=== PATIENT | female | born 1935 | race African-American/Black ===

== ENCOUNTER → 2016-04-11 | Outpatient (CLI) | payer OTHER ==
--- NOTE | 2016-04-11 12:20 | RAD ---
DATE: 04/11/2016 EXAM: DIGITAL SCREEN BILAT W/CAD HISTORY: Screening COMPARISON: One year earlier This study was interpreted with the benefit of Computerized Aided Detection (CAD). FINDINGS: The breast parenchyma shows scattered fibroglandular densities. Breast parenchyma level B. There has been little change compared to the previous exam IMPRESSION: Benign finding BI-RADS CATEGORY: 2 BENIGN FINDING(S) RECOMMENDED FOLLOW-UP: 12M 12 MONTH FOLLOW-UP PQRS compliance statement: Patient information was entered into a reminder system with a target due date 04/11/2017 for the next mammogram. Mammography is a sensitive method for finding small breast cancers, but it does not detect them all and is not a substitute for careful clinical examination. A negative mammogram does not negate a clinically suspicious finding and should not result in delay in biopsying a clinically suspicious abnormality. "Our facility is accredited by the [employer] Mammography [employer]."
== END | disposition home or self-care (01) ==
LOC: MAMMO 14:07
PROVIDERS: ATTEND Family Medicine
DX: Z12.31 Encounter for screening mammogram for malignant neoplasm of breast (principal)
CPT/HCPCS: 77052; G0202; 77067

== ENCOUNTER → 2017-05-29 | Outpatient (CLI) | payer MEDICARE | END | disposition home or self-care (01) | LOC: MAMMO 10:26 | DX: Z12.31 Encounter for screening mammogram for malignant neoplasm of breast (principal) | CPT/HCPCS: 77067 ==

== ENCOUNTER → 2017-12-21 | Outpatient (CLI) | payer MEDICARE ==
--- NOTE | 2017-12-22 07:51 | KCIC ---
AP view of the abdomen Clinical indications: Right lower quadrant pain for one week. Constipation. Decreased appetite. Pain is worse at night. FINDINGS: There is mild fecal retention throughout the colon and rectosigmoid region. No obstructive bowel pattern is seen. Vascular calcifications are seen within the anatomic pelvis. A right hip arthroplasty is evident. IMPRESSION: No acute radiographic abnormality. Electronically signed by: Kobi Mccollum MD (12/22/2017 7:48 AM) [facility]
== END | disposition home or self-care (01) ==
LOC: KCIC 15:43
PROVIDERS: ATTEND Nurse Practitioner Family
DX: K59.09 Other constipation (principal); N73.8 Other specified female pelvic inflammatory diseases
CPT/HCPCS: 74018

== ENCOUNTER → 2017-12-31 | Outpatient (CLI) | payer MEDICARE ==
--- NOTE | 2017-12-31 17:23 | KCIC ---
CT ABDOMEN PELVIS WO CONTRAST Indication: Right upper quadrant and right lower quadrant pain. Decreased appetite. Decreased renal function. Pain for about 3 weeks. Exposure: One or more of the following individualized dose reduction techniques were utilized for this examination: 1. Automated exposure control 2. Adjustment of the mA and/or kV according to patient size 3. Use of iterative reconstruction technique. Comparison: None are available. Contrast: No intravenous contrast given. Oral contrast was given. Evaluation of solid viscera, bowel and vasculature is compromised by the noncontrast technique. Lower thorax: Mild linear markings in both lung bases, most likely atelectasis or fibrosis. Small pericardial effusion. Liver: Innumerable hypodense lesions. Largest is in the inferior right lobe and measures 10 cm long axis. Random measurement of attenuation coefficients of some of these lesions are compatible with fluid density and cyst etiology. Calcification identified between some of the lesions at the central aspect of the liver. Spleen: Unremarkable Pancreas: Unremarkable Adrenals: No evidence of mass. Kidneys: No obvious mass. Urinary tracts: No urolithiasis or hydronephrosis. Gallbladder: Poorly seen, may be contracted. Aorta: Mildly calcified. Lymph nodes: No significant enlargement GI tract: Small hiatal hernia. Thickening of the proximal stomach may be due to lack of distention. Wall thickening of the duodenum, may be due to lack of distention and lack of oral contrast within this segment. No evidence of bowel obstruction. There is mild wall thickening of the hepatic flexure of the colon, could be due to the lack of distention. The appendix is not clearly seen Reproductive organs:No evidence of mass. Urinary bladder: Poorly evaluated due to artifact from right hip replacement. Peritoneum: No free fluid is identified. Mild stranding in the right paracolic gutter fat and around the inferior right liver and hepatic flexure of the colon. Abdominal wall: Small fat-containing anterior abdominal wall umbilical hernia. Spine: Degenerative spondylosis with minimal spondylolisthesis and stenosis. Bones: Right hip replacement. Left hip primary osteoarthritis. IMPRESSION: 1. Stranding within the fat around the inferior liver and hepatic flexure of the colon. This could be secondary to mass effect from large lower right lobe hepatic lesion. Inflammatory etiology is possible. There is question of mild wall thickening of the hepatic flexure of the colon, and mild colitis is possible. 2. Innumerable hepatic lesions, some of which demonstrate fluid density and these likely represent cysts, but some are too small to characterize. Some central coarse calcifications between some of these cysts appears chronic. Unless these have been previously worked up, ultrasound could be of benefit to confirm the lack of any noncystic lesions. Electronically signed by: Epi Rutherford MD (12/31/2017 5:19 PM) [facility]
== END | disposition home or self-care (01) ==
LOC: KCIC CT 14:57
PROVIDERS: ATTEND Nurse Practitioner Family
DX: N28.9 Disorder of kidney and ureter, unspecified (principal); K76.89 Other specified diseases of liver; M43.16 Spondylolisthesis, lumbar region; K44.9 Diaphragmatic hernia without obstruction or gangrene; M47.896 Other spondylosis, lumbar region; I31.3 Pericardial effusion (noninflammatory); I10 Essential (primary) hypertension
CPT/HCPCS: 74176

== ENCOUNTER → 2018-01-15 | Outpatient (CLI) | payer MEDICARE ==
--- NOTE | 2018-01-15 15:34 | RAD ---
ABDOMEN COMPLETE History: Liver mass Comparison: Noncontrast CT exam December 31, 2017 Findings: Multiple sonographic images of the abdomen are submitted. Right lobe of the liver measured 18.3 cm longitudinal. There are multiple scattered hypoechoic lesions of the liver bilaterally, some foci associated with internal echoes. Largest focus of the right lobe measures about 11 x 9.6 x 10.3 cm. Gallbladder is present without intraluminal abnormality, wall thickening, pericholecystic fluid. Right kidney measured 11.9 x 4.5 x 4.6 cm. Left kidney measured 10.4 x 4.3 x 4.8 cm. There is no hydronephrosis of either kidney. There is no significant abnormality of the visualized pancreas. Spleen measured 9.3 cm. Abdominal aortic caliber is within normal limits up to 2.4 cm. There is segmental visualization of the inferior vena cava. Impression: 1. There are multiple septated cysts of the liver bilaterally, largest of the right lobe up to about 11 cm, some of which have complex features. Electronically signed by: Ziyad Gee MD (01/15/2018 3:31 PM) [facility]
== END | disposition home or self-care (01) ==
LOC: US 09:12
PROVIDERS: ATTEND Nurse Practitioner Family
DX: R16.0 Hepatomegaly, not elsewhere classified (principal); K76.89 Other specified diseases of liver
CPT/HCPCS: 76700

== ENCOUNTER → 2018-04-08 | Outpatient (CLI) | payer MEDICARE ==
[2018-04-08 10:35] LABS: BASO % 0 % (0-3); EOS # 0.1 x10^3/uL (0.0-0.7); EOS % 2 % (0-3); HEMATOCRIT 33.7 % (36.0-47.0); HEMOGLOBIN 11.3 g/dL (12.0-15.5); LYMPH # 1.2 x10^3/uL (1.0-4.8); LYMPH % 24 % (24-48); MEAN CORPUSCULAR HEMOGLOBIN 30 pg (25-35); MEAN CORPUSCULAR HGB CONC 33 g/dL (31-37); MEAN CORPUSCULAR VOLUME 91 fL (79-100); MONO # 0.7 x10^3/uL (0.0-1.1); MONO % 14 % (0-9); NEUT # 3.1 x10^3uL (1.8-7.7); NEUT % 60 % (31-73); PLATELET COUNT 262 x10^3/uL (140-400); RED CELL DISTRIBUTION WIDTH 14.4 % (11.5-14.5); WHITE BLOOD COUNT 5.1 x10^3/uL (4.0-11.0)
[2018-04-08 10:39] LABS: ALBUMIN 3.4 g/dL (3.4-5.0); ALBUMIN/GLOBULIN RATIO 0.7 (1.0-1.7); CALCIUM 9.3 mg/dL (8.5-10.1); CREATININE 1.5 mg/dL (0.6-1.0); GFR 40.2; POTASSIUM 3.9 mmol/L (3.5-5.1); TOTAL BILIRUBIN 0.3 mg/dL (0.2-1.0); TOTAL PROTEIN 8.5 g/dL (6.4-8.2)
== END | disposition home or self-care (01) ==
LOC: LAB 09:53
PROVIDERS: ATTEND Family Medicine
DX: N19 Unspecified kidney failure (principal); D64.9 Anemia, unspecified
CPT/HCPCS: 36415; 80053; 82043; 85025

== ENCOUNTER → 2018-05-25 | Outpatient (CLI) | payer MEDICARE ==
[~2018-05-25] MED LIST: ACET325T9 PO; ASPI-630 PO; BYSTOLIC20 MG PO; CA C1TAB38 PO; CYAN10005 PO; MULT-697 PO; TRIA1CAP3 PO
[2018-05-25 15:35] LABS: HEMATOCRIT 31.5 % (36.0-47.0); HEMOGLOBIN 10.4 g/dL (12.0-15.5)
[2018-05-25 16:01] LABS: ALBUMIN 3.3 g/dL (3.4-5.0); CREATININE 1.6 mg/dL (0.6-1.0); GFR 37.3; MAGNESIUM 2.1 mg/dL (1.8-2.4); POTASSIUM 4.7 mmol/L (3.5-5.1)
[2018-05-26 02:15] LABS: CREAT RD UR 50.7 mg/dL (Not Estab.); MICRO CREAT RATIO 7.3 mg/g creat (0.0-30.0); MICROALB RD UR 3.7 ug/mL (Not Estab.); UR PROTEIN RD 5.7 mg/dL (Not Estab.)
[2018-05-27 12:44] LABS: KAPPA LAMBDA RATIO 1.21 (0.26-1.65)
[2018-05-27 16:15] LABS: IMMUNOGLOBULIN A 362 mg/dL (64-422); IMMUNOGLOBULIN G 1873 mg/dL (700-1600); IMMUNOGLOBULIN M 134 mg/dL (26-217)
[2018-05-28 15:29] LABS: ALBUM 3.4 g/dL (2.9-4.4); ALPHA 1 0.3 g/dL (0.0-0.4); ALPHA 2 0.8 g/dL (0.4-1.0); GAMMA 1.9 g/dL (0.4-1.8); PROTEIN TOTAL 7.4 g/dL (6.0-8.5); SPEP AG RATIO 0.9 (0.7-1.7)
== END | disposition home or self-care (01) ==
LOC: LAB 15:04
PROVIDERS: ATTEND Internal Medicine Nephrology
DX: I12.9 Hypertensive chronic kidney disease with stage 1 through stage 4 chronic kidney disease, or unspecified chronic kidney disease (principal); N18.3 Chronic kidney disease, stage 3 (moderate); D63.1 Anemia in chronic kidney disease; N17.9 Acute kidney failure, unspecified; K76.89 Other specified diseases of liver; Z68.28 Body mass index [BMI] 28.0-28.9, adult
CPT/HCPCS: 36415; 80069; 82043; 82570; 83520; 83735; 84156; 84165; 85014; 85018; 86334

== ENCOUNTER → 2018-05-31 | Outpatient (CLI) | payer MEDICARE ==
--- NOTE | 2018-05-31 16:52 | RAD ---
DATE: May 31, 2018 EXAM: MAMMO IGNACIA SCREENING BILATERAL HISTORY: Screening study. COMPARISON: 2017 and 2018 2-D digital mammographic views of both breasts were performed in the CC and MLO projections. 3-D digital tomosynthesis images of both breasts were performed in the CC and MLO projections and reviewed on a computer workstation. This study was interpreted with the benefit of Computerized Aided Detection (CAD). FINDINGS: Breast Density: FATTY The breast parenchyma is primarily fatty replaced. Breast parenchyma level density A.. There are no dominant suspicious masses, suspicious microcalcifications or evidence of architectural distortion. IMPRESSION: No mammographic indicators for malignancy. BI-RADS CATEGORY: 1 NEGATIVE RECOMMENDED FOLLOW-UP: 12M 12 MONTH FOLLOW-UP PQRS compliance statement: Patient information was entered into a reminder system with a target due date June 01, 2019 for the next mammogram. Mammography is a sensitive method for finding small breast cancers, but it does not detect them all and is not a substitute for careful clinical examination. A negative mammogram does not negate a clinically suspicious finding and should not result in delay in biopsying a clinically suspicious abnormality. "Our facility is accredited by the [employer]ammography [employer]." The patient's breast density may affect the ability of mammography to detect breast cancer. There are 4 categories of breast density, A, B, C and D. Breast density A means that most of the breast tissue is replaced with adipose tissue and therefore is not dense. Breast density B means that the breast tissue is mildly dense and scattered. Breast density C means that the breast tissue is heterogeneously dense. Breast density D means that the breast tissue is very dense. Breast densities especially C and D may decrease the sensitivity of mammography to detect breast cancer. Therefore, the patient may benefit from 3-D breast mammography (3D breast tomography) as a part of their screening mammogram. Insurance may or may not pay for this additional imaging. The patient's breast density based on today's mammogram is category A.
== END | disposition home or self-care (01) ==
LOC: MAMMO 10:34
PROVIDERS: ATTEND Family Medicine
DX: Z12.31 Encounter for screening mammogram for malignant neoplasm of breast (principal)
CPT/HCPCS: 77063; 77067

== ENCOUNTER 2018-08-20 08:22 | Outpatient (CLI) | payer MEDICARE ==
[2018-08-20] VITALS (8 sets, daily range): BP systolic 120–167; BP diastolic 53–87
[~2018-08-20] VITALS: Ht 157.5 cm; Wt 74.8 kg
[~2018-08-20 08:22] MED LIST changes: -ACET325T9 PO; -ASPI-630 PO; -BYSTOLIC20 MG PO; -CA C1TAB38 PO; -CYAN10005 PO; +HEPARIN for ARTERIAL LINE 0 ML ONE; +IODIXANOL 320 MG/ML 100 ML VIAL. ONE; +IODIXANOL 320 MG/ML 50ML VIAL. ONE; +IOHEXOL 240 MG/ML 50ML VIAL. ONE; +LIDOCAINE WITH 8.4% SOD BICARB 3 ML DISP.SYRIN. ONE; -MULT-697 PO; -TRIA1CAP3 PO
[2018-08-20] MEDS ORDERED: CYAN10005 PO (08:39)
[2018-08-20] MEDS ORDERED: MULT-697 PO (08:39)
[2018-08-20] MEDS ORDERED: TRIA1CAP3 PO (08:39)
[2018-08-20] MEDS ORDERED: BYSTOLIC20 MG PO (08:39)
[2018-08-20] MEDS ORDERED: ACET325T9 PO (08:39)
[2018-08-20] MEDS ORDERED: ASPI-630 PO (08:39)
[2018-08-20] MEDS ORDERED: CA C1TAB38 PO (08:39)
[2018-08-20] MEDS ORDERED: LIDOCAINE WITH 8.4% SOD BICARB 3 ML DISP.SYRIN. ONE (09:19)
[2018-08-20 09:28] LABS: BASO % 1 % (0-3); EOS # 0.1 x10^3/uL (0.0-0.7); EOS % 2 % (0-3); HEMATOCRIT 29.7 % (36.0-47.0); HEMOGLOBIN 9.7 g/dL (12.0-15.5); LYMPH # 0.8 x10^3/uL (1.0-4.8); LYMPH % 18 % (24-48); MEAN CORPUSCULAR HEMOGLOBIN 29 pg (25-35); MEAN CORPUSCULAR HGB CONC 33 g/dL (31-37); MEAN CORPUSCULAR VOLUME 88 fL (79-100); MONO # 0.6 x10^3/uL (0.0-1.1); MONO % 13 % (0-9); NEUT # 2.8 x10^3uL (1.8-7.7); NEUT % 66 % (31-73); PLATELET COUNT 325 x10^3/uL (140-400); RED BLOOD COUNT 3.37 x10^6/uL (3.50-5.40); RED CELL DISTRIBUTION WIDTH 13.3 % (11.5-14.5); WHITE BLOOD COUNT 4.3 x10^3/uL (4.0-11.0)
[2018-08-20] MEDS ORDERED: LIDOCAINE WITH 8.4% SOD BICARB 3 ML DISP.SYRIN. IJ ONE (09:30)
[2018-08-20 09:43] LABS: PROTHROMBIN TIME PATIENT 14.9 SEC (11.7-14.0)
--- NOTE | 2018-08-20 11:07 | NUR ---
Discharge Note: SARA RIOJAS Discharge instructions and discharge home medications reviewed with Patient and a copy given. All questions have been answered and understanding verbalized. The following instructions and handouts were given: Bone Marrown Biopsy and sign/symptoms of infection. Discontinued lines and drains: NO IV for this visit. Patient discharged to home alone with no family. Patient did NOT have sedation.
--- NOTE | 2018-08-20 15:07 | RAD ---
CT-guided bone marrow biopsy. 08/20/2018 3:03 PM Indication: MONOCLONAL GAMMOPATHY Discussion: The risks and benefits of the procedure, including but not limited to, bleeding and infection were discussed patient. Informed consent was obtained. The patient was brought to the CT scanner and placed in the prone position. A timeout procedure was performed. Account Review Specialist CT imaging of the pelvis demonstrated left ilium amenable to bone marrow biopsy. The overlying soft tissues were prepped and draped using maximum sterile barrier technique. 1% lidocaine without epinephrine was administered for local anesthesia. Under intermittent CT guidance, an OncControl needle was advanced into the bone marrow of the left iliac crest. 2 Aspirates and 1 core biopsy samples were obtained. Samples were delivered to pathology was present at the time of procedure. The needle was removed and manual pressure held to achieve hemostasis. No immediate complications were identified. Anesthesia: Local only Impression: Successful CT-guided bone marrow biopsy of the left iliac crest . PQRS Compliance Statement: One or more of the following individualized dose reduction techniques were utilized for this examination: 1. Automated exposure control 2. Adjustment of the mA and/or kV according to patient size 3. Use of iterative reconstruction technique
--- NOTE | 2018-08-25 10:09 | PATHOLOGY ---
[facility] Accession Number: [id number] . 01 Material submitted: . PART A: bone - BONE MARROW BX PART B: bone - BM CLOT PART C: bone - BM ASP SMEARS PART D: bone - PBS PART E: bone - BONE MARROW FLOW . 01 Clinical history: . 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 . 02 Diagnosis: Bone marrow aspirate, biopsy, cell clot and peripheral blood: - Peripheral blood with moderate normocytic anemia. - Hypercellular bone marrow with trilineage hematopoiesis, erythroid hyperplasia, mild dyspoiesis and focal involvement by plasma cell dyscrasia. (See comment). . (CLW:mm; 08/24/2018) [facility]/08/24/2018 . 02 Comment: Overall, the bone marrow is hypercellular for the patient's age with trilineage hematopoiesis, erythroid hyperplasia, mild dyspoiesis and focal involvement by plasma cell dyscrasia. Flow cytometry identifies 0.9% lambda restricted plasma cells. By immunohistochemical staining, there are 30% plasma cells; however, a predominate number appear polyclonal. Therefore, the estimated percentage of lambda-restricted plasma cells is estimated at less than 10%. Correlation with clinical history, additional laboratory data and radiographic findings is required to determine the extent of the disease process. The dyspoiesis is mild and does not meet the morphologic criteria for myelodysplasia. Correlation with clinical history, additional laboratory data and cytogenetics is recommended. . (CLW:mm; 08/24/2018) . 02 Electronically signed: . Sabiha Barragan MD, Pathologist NPI- [id number] . 01 Gross description: . A. The specimen is received in formalin, labeled "Susan Khan bone marrow biopsy". Received is a single needle core of light saez bone measuring 1.1 cm in length by 0.3 cm in diameter. The specimen is submitted entirely in cassette A1, following light decalcification. . B. The specimen is received in formalin, labeled "Susan Khan, BM clot aspirate". Received is blood coagulum measuring 3.7 x 1.9 x 0.5 cm in aggregate dimensions. The specimen is filtered and entirely submitted in cassette B1 and B2. (CAA; 08/20/2018) QAC/QAC . 02 Microscopic: . CBC Data (08/20/18): WBC 4,300/uL, RBC 3.37, hemoglobin 9.7 g/dL, hematocrit 29.7%, MCV 88 fL, MCH 29 pg, MCHC 33 g/dL, RDW 13.3%, and platelet count 326,000/uL. White blood cell differential: segs 66%, lymphs 18%, monos 13%, eos 2%, and basos 1%. . Peripheral Blood Smear: Cytomorphological examination of the Youssef's stained peripheral blood smear confirms the provided data. Red blood cells show moderate normocytic anemia with no significant anisopoikilocytosis. No schistocytes or microspherocytes are seen. White blood cells are predominantly segmented neutrophils and are without significant dyspoiesis or significant left shift. Lymphocytes are predominantly small, round, and mature appearing with condensed chromatin and scant cytoplasm with admixed large granular lymphocytes. A rare lymphocyte has plasmacytoid morphology; however, no plasma cells are seen on scanning. Monocytes are mature. Platelets are adequate in number and mainly normal in morphology with rare larger platelets noted. . Aspirate Smears: Cytomorphological examination of the Youssef's stained aspirate smears shows spicules present. The overall cellularity is approximately 40%. The myeloid to erythroid ratio is 1:1. Full myeloid maturation is identified and is without significant dyspoiesis. Erythroid maturation is mildly dyserythropoietic with irregular nuclear contours and left-shifted maturation. In a 500 cell differential, there are 2% blasts (no Jean-Pierre rods are seen), 45% more differentiated myeloids, 34% erythroid precursors, 9% lymphocytes and 10% plasma cells. Megakaryocytes are proportional in number and both normal and abnormal in morphology with variable sizes and nuclear abnormalities. No lymphoid aggregates or markedly atypical lymphoid cells are seen. Plasma cells are without marked atypia. Iron stain of the aspirate smear shows trace-1/4+ iron positivity with rare spicules present. No ringed sideroblasts are identified. . Core Biopsy and Cell Clot: The decalcified bone marrow core biopsy is small, but adequate. The bone marrow is mildly hypercellular with an overall cellularity of approximately 40 to 50%. The myeloid to erythroid ratio is 1:1. Myeloid maturation is without significant dyspoiesis. Erythroid maturation is mildly dyserythropoietic. Megakaryocytes are normal in number and both normal and abnormal in morphology. No lymphoid aggregates or markedly atypical lymphoid cells are seen. Bony trabeculae and blood vessels are unremarkable. The cell clot has spicules present that are similar in cellularity and differential morphology as previously described. . Properly-controlled special stains are performed. . Block A1 Iron: 1/4+ iron positivity Reticulin: No significant reticulin fibrosis . Iron (block B1 and B2) - 1/4+ iron positivity with spicules present. . To further quantify and characterize the plasma cell population and to identify cells in a tissue architectural context, properly controlled immunohistochemical stains are performed. . Block A1 CD138: Stains approximately 30% plasma cells [place] and lambda in situ hybridization: Plasma cells are predominantly lambda with admixed kappa cells present . Block B2 CD138: Stains approximately 40% plasma cells [place] and lambda in situ hybridization: Plasma cells are lambda predominate with numerous kappa cells also present . Flow Cytometry: Flow cytometric immunophenotypic analysis was performed at [facility]. The diagnosis is "monoclonal plasma cells detected." There are 13% lymphocytes. Of the lymphocytes, there are 59% T-cells with a CD4/CD8 ratio of 9.3 and no aberrant T-cell antigen expression and 7% polyclonal B-cells (kappa lambda ratio of 1.1). There are 0.5% CD34 positive cells (blasts) and 0.1% precursor B-cells. There are 0.9% plasma cells that are lambda monoclonal and express CD38, CD138 with partial CD19 (mostly negative), partial CD56 (mostly negative) and possible partial CD117. They are negative for CD20. Please see separate flow cytometry report from [facility] ([id number]). . Cytogenetics Analysis: Cytogenetic chromosomal analysis is pending at [facility] ([id number]). . (CLW:francine; 08/24/2018) . 02 Pathologist provided ICD-10: D75.9, D64.9 . 02 CPT . 262451, 478055, 985805, 612940, 314218, 410684, [id number], T81341, [id number], 209574, 855423, 968977, [id number] Specimen Comment: A courtesy copy of this report has been sent to Specimen Comment: [phone], , . Specimen Comment: Report sent to ,DR ORTEGA / DR ANTIONE ANNA Performed at: 01 [facility] [address] [id number] MD Deon Joseph MD Phone: [phone] Performed at: 02 [facility] [address] [id number] MD Toño Henderson MD Phone: [phone]
== END 2018-08-20 11:05 | disposition home or self-care (01) ==
LOC: INTRAD 08:22
PROVIDERS: ATTEND Internal Medicine Hematology & Oncology
DX: D47.2 Monoclonal gammopathy (principal); Z88.0 Allergy status to penicillin
CPT/HCPCS: 36415; 38222; 77012; 85025; 85610; 88184; 88185; 88237; 88305; 88311; 88313; 88342; 88364; 88365

== ENCOUNTER → 2018-09-09 | Outpatient (CLI) | payer MEDICARE ==
[2018-08-20 10:52] VITALS: BP 120/54
[~2018-09-09] MED LIST changes: +ACET325T9 PO; +ASPI-630 PO; +BYSTOLIC20 MG PO; +CA C1TAB38 PO; +CYAN10005 PO; -HEPARIN for ARTERIAL LINE 0 ML ONE; -IODIXANOL 320 MG/ML 100 ML VIAL. ONE; -IODIXANOL 320 MG/ML 50ML VIAL. ONE; -IOHEXOL 240 MG/ML 50ML VIAL. ONE; -LIDOCAINE WITH 8.4% SOD BICARB 3 ML DISP.SYRIN. ONE; +MULT-697 PO; +TRIA1CAP3 PO
[2018-09-09 13:02] LABS: HEMATOCRIT 33.3 % (36.0-47.0); HEMOGLOBIN 11.2 g/dL (12.0-15.5)
[2018-09-09 13:19] LABS: ALBUMIN 3.4 g/dL (3.4-5.0); CALCIUM 9.7 mg/dL (8.5-10.1); GFR 28.9; PHOSPHORUS 3.5 mg/dL (2.6-4.7); POTASSIUM 4.3 mmol/L (3.5-5.1)
[2018-09-10 00:11] LABS: CREATININE PTH 1.79 mg/dL (0.57-1.00); PHOSPHORUS PTH 3.5 mg/dL (2.5-4.5); PTH INTACT 28 pg/mL (15-65)
== END | disposition home or self-care (01) ==
LOC: LAB 12:02
PROVIDERS: ATTEND Internal Medicine Nephrology
DX: N17.9 Acute kidney failure, unspecified (principal); I12.9 Hypertensive chronic kidney disease with stage 1 through stage 4 chronic kidney disease, or unspecified chronic kidney disease; N18.3 Chronic kidney disease, stage 3 (moderate); K76.89 Other specified diseases of liver; D64.9 Anemia, unspecified; Z68.28 Body mass index [BMI] 28.0-28.9, adult
CPT/HCPCS: 36415; 80069; 82306; 83970; 85014; 85018

== ENCOUNTER → 2018-10-12 | Outpatient (CLI) | payer MEDICARE ==
[2018-08-20 10:52] VITALS: BP 120/54
[2018-10-12 14:24] LABS: HEMATOCRIT 30.9 % (36.0-47.0); HEMOGLOBIN 10.5 g/dL (12.0-15.5)
[2018-10-12 14:40] LABS: ALBUMIN 3.3 g/dL (3.4-5.0); CALCIUM 9.5 mg/dL (8.5-10.1); CREATININE 1.9 mg/dL (0.6-1.0); CREATININE,RANDOM URINE 51.8 mg/dL (Not Establ.); GFR 30.6; PHOSPHORUS 3.6 mg/dL (2.6-4.7)
[2018-10-13 01:13] LABS: CREAT RD UR 51.9 mg/dL (Not Estab.); MICRO CREAT RATIO 20.8 mg/g creat (0.0-30.0); MICROALB RD UR 10.8 ug/mL (Not Estab.)
[2018-10-13 08:15] LABS: CALCIUM PTH 9.9 mg/dL (8.7-10.3); CREATININE PTH 1.76 mg/dL (0.57-1.00); PHOSPHORUS PTH 3.6 mg/dL (2.5-4.5); PTH INTACT 19 pg/mL (15-65)
== END | disposition home or self-care (01) ==
LOC: LAB 13:42
PROVIDERS: ATTEND Internal Medicine Nephrology
DX: N18.3 Chronic kidney disease, stage 3 (moderate) (principal); Z68.28 Body mass index [BMI] 28.0-28.9, adult
CPT/HCPCS: 36415; 80069; 82043; 82306; 82570; 83970; 84156; 85014; 85018

== ENCOUNTER → 2019-02-07 | Outpatient (CLI) | payer MEDICARE ==
[2018-08-20 10:52] VITALS: BP 120/54
[~2019-02-07] MED LIST changes: +CYAN-25 PO; -CYAN10005 PO
[2019-02-07 13:38] LABS: HEMATOCRIT 34.6 % (36.0-47.0); HEMOGLOBIN 11.5 g/dL (12.0-15.5)
[2019-02-07 13:51] LABS: CREATININE,RANDOM URINE 127.5 mg/dL (Not Establ.)
[2019-02-07 13:53] LABS: ALBUMIN 3.4 g/dL (3.4-5.0); CALCIUM 9.2 mg/dL (8.5-10.1); CREATININE 1.6 mg/dL (0.6-1.0); GFR 37.2; PHOSPHORUS 3.4 mg/dL (2.6-4.7); POTASSIUM 4.1 mmol/L (3.5-5.1)
[2019-02-07 20:07] LABS: CREAT RD UR 120.5 mg/dL (Not Estab.); MICROALB RD UR 14.5 ug/mL (Not Estab.)
[2019-02-07 23:08] LABS: CALCIUM PTH 9.6 mg/dL (8.7-10.3); CREATININE PTH 1.57 mg/dL (0.57-1.00); PHOSPHORUS PTH 3.5 mg/dL (2.5-4.5); PTH INTACT 32 pg/mL (15-65)
== END | disposition home or self-care (01) ==
LOC: LAB 12:57
PROVIDERS: ATTEND Nurse Practitioner Adult Health
DX: I12.9 Hypertensive chronic kidney disease with stage 1 through stage 4 chronic kidney disease, or unspecified chronic kidney disease (principal); N18.3 Chronic kidney disease, stage 3 (moderate); N17.9 Acute kidney failure, unspecified; D47.2 Monoclonal gammopathy; D64.9 Anemia, unspecified; K76.89 Other specified diseases of liver; Z87.39 Personal history of other diseases of the musculoskeletal system and connective tissue; Z86.2 Personal history of diseases of the blood and blood-forming organs and certain disorders involving the immune mechanism; Z96.641 Presence of right artificial hip joint; Z87.42 Personal history of other diseases of the female genital tract; Z87.448 Personal history of other diseases of urinary system; Z86.79 Personal history of other diseases of the circulatory system
CPT/HCPCS: 36415; 80069; 82043; 82570; 82728; 83540; 83550; 83970; 84156; 85014; 85018

== ENCOUNTER → 2019-10-06 | Outpatient (CLI) | payer MEDICARE ==
[2018-08-20 10:52] VITALS: BP 120/54
[2019-10-06 16:01] LABS: ALBUMIN 3.5 g/dL (3.4-5.0); CALCIUM 9.2 mg/dL (8.5-10.1); CREATININE 1.8 mg/dL (0.6-1.0); GFR 32.5; PHOSPHORUS 3.6 mg/dL (2.6-4.7); POTASSIUM 3.8 mmol/L (3.5-5.1)
[2019-10-06 17:18] LABS: CREATININE,RANDOM URINE 206.4 mg/dL (Not Establ.)
[2019-10-07 02:08] LABS: CREAT RD UR 184.4 mg/dL (Not Estab.)
== END | disposition home or self-care (01) ==
LOC: LAB 15:02
PROVIDERS: ATTEND Internal Medicine Nephrology
DX: D47.2 Monoclonal gammopathy (principal); D64.9 Anemia, unspecified; K76.89 Other specified diseases of liver; I12.9 Hypertensive chronic kidney disease with stage 1 through stage 4 chronic kidney disease, or unspecified chronic kidney disease; N18.3 Chronic kidney disease, stage 3 (moderate); N17.9 Acute kidney failure, unspecified; Z68.28 Body mass index [BMI] 28.0-28.9, adult
CPT/HCPCS: 36415; 80069; 82043; 82570; 84156

== ENCOUNTER → 2020-02-07 | Outpatient (CLI) | payer MEDICARE ==
[2018-08-20 10:52] VITALS: BP 120/54
--- NOTE | 2020-02-07 11:33 | RAD ---
EXAM: Bilateral digital screening mammogram with tomosynthesis. HISTORY: 85-year-old female presents for screening mammography. TECHNIQUE: Full-field digital craniocaudal and mediolateral oblique 2D and 3D tomosynthesis images of both breasts are obtained for evaluation. Computer aided detection was not applied. COMPARISON: 05/31/2018 and 05/29/2017 BREAST PARENCHYMAL DENSITY: Level B - Scattered fibroglandular densities. FINDINGS: There is no new suspicious mass, microcalcification or region of architectural distortion. There is a tiny benign nodular density within the retroareolar right breast in the craniocaudal projection which is not confirmed in the mediolateral projection and appears similar compared to a study performed 06/03/2017, allowing for differences in technique. IMPRESSION: BI-RADS Category 2: Benign finding(s). RECOMMENDATION: Annual mammography is recommended. If your mammogram demonstrates that you have dense breast tissue, which could hide abnormalities, and if you have other risk factors for breast cancer that have been identified, you might benefit from supplemental screening tests that may be suggested by your ordering physician. Dense breast tissue, in and of itself, is a relatively common condition. This information is not provided to cause undue concern, but rather to raise your awareness and to promote discussion with your physician regarding the presence of other risk factors, in addition to dense breast tissue. A report of your mammography results will be sent to you and your physician. You should contact your physician if you have any questions or concerns regarding this report. Mammography is a sensitive method for finding small breast cancers, but it does not detect them all and is not a substitute for careful clinical examination. A negative mammogram does not negate a clinically suspicious finding and should not result in delay in biopsying a clinically suspicious abnormality. PQRS compliance statement - Patient information was entered into a reminder system with a target due date for the next mammogram. "Our facility is accredited by the [employer] Mammography Program." Electronically signed by: Kiya Grimaldo MD (02/07/2020 11:30 AM) [id number]
== END ==
LOC: MAMMO 09:44
PROVIDERS: ATTEND Family Medicine
DX: Z12.31 Encounter for screening mammogram for malignant neoplasm of breast (principal); N64.89 Other specified disorders of breast
CPT/HCPCS: 77063; 77067

== ENCOUNTER → 2020-04-05 | Outpatient (CLI) | payer MEDICARE ==
[2018-08-20 10:52] VITALS: BP 120/54
[2020-04-05 10:12] LABS: ALBUMIN 3.5 g/dL (3.4-5.0); CALCIUM 9.6 mg/dL (8.5-10.1); CREATININE 1.6 mg/dL (0.6-1.0); GFR 37.2; PHOSPHORUS 3.6 mg/dL (2.6-4.7); POTASSIUM 3.9 mmol/L (3.5-5.1)
[2020-04-06 11:09] LABS: CALCIUM PTH 9.9 mg/dL (8.7-10.3); CREATININE PTH 1.43 mg/dL (0.57-1.00); PHOSPHORUS PTH 3.6 mg/dL (3.0-4.3); PTH INTACT 34 pg/mL (15-65)
== END ==
LOC: LAB 09:20
PROVIDERS: ATTEND Internal Medicine Nephrology
DX: I12.9 Hypertensive chronic kidney disease with stage 1 through stage 4 chronic kidney disease, or unspecified chronic kidney disease (principal); N18.30 Chronic kidney disease, stage 3 unspecified; K76.89 Other specified diseases of liver; D64.9 Anemia, unspecified; D47.2 Monoclonal gammopathy; Z68.28 Body mass index [BMI] 28.0-28.9, adult
CPT/HCPCS: 36415; 80069; 83970

== ENCOUNTER → 2020-10-31 | Outpatient (CLI) | payer MEDICARE ==
[2018-08-20 10:52] VITALS: BP 120/54
[2020-10-31 16:37] LABS: HEMATOCRIT 33.5 % (36.0-47.0); HEMOGLOBIN 11.4 g/dL (12.0-15.5)
[2020-10-31 17:00] LABS: ALBUMIN 3.3 g/dL (3.4-5.0); CALCIUM 9.3 mg/dL (8.5-10.1); CREATININE 1.8 mg/dL (0.6-1.0); GFR 32.4; PHOSPHORUS 4.2 mg/dL (2.6-4.7); POTASSIUM 3.9 mmol/L (3.5-5.1)
== END ==
LOC: LAB 15:07
PROVIDERS: ATTEND Internal Medicine Nephrology
DX: I12.9 Hypertensive chronic kidney disease with stage 1 through stage 4 chronic kidney disease, or unspecified chronic kidney disease (principal); N18.32 Chronic kidney disease, stage 3b; N17.9 Acute kidney failure, unspecified; D47.2 Monoclonal gammopathy; D64.9 Anemia, unspecified; K76.89 Other specified diseases of liver; Z68.28 Body mass index [BMI] 28.0-28.9, adult
CPT/HCPCS: 36415; 80069; 85014; 85018

== ENCOUNTER → 2021-05-29 | Outpatient (CLI) | payer MEDICARE ==
[2018-08-20 10:52] VITALS: BP 120/54
[2021-05-29 15:09] LABS: ALBUMIN 3.3 g/dL (3.4-5.0); CALCIUM 8.8 mg/dL (8.5-10.1); CREATININE 1.7 mg/dL (0.6-1.0); GFR 34.6; PHOSPHORUS 3.6 mg/dL (2.6-4.7); POTASSIUM 4.1 mmol/L (3.5-5.1)
== END ==
LOC: LAB 14:01
PROVIDERS: ATTEND Internal Medicine Nephrology
DX: I12.9 Hypertensive chronic kidney disease with stage 1 through stage 4 chronic kidney disease, or unspecified chronic kidney disease (principal); N18.32 Chronic kidney disease, stage 3b; N17.9 Acute kidney failure, unspecified; D47.2 Monoclonal gammopathy; D64.9 Anemia, unspecified; K76.89 Other specified diseases of liver; Z68.27 Body mass index [BMI] 27.0-27.9, adult
CPT/HCPCS: 36415; 80069

== ENCOUNTER → 2021-06-17 | Outpatient (CLI) | payer MEDICARE ==
[2018-08-20 10:52] VITALS: BP 120/54
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
== END ==
LOC: MAMMO 13:37
PROVIDERS: ATTEND Family Medicine
DX: Z12.31 Encounter for screening mammogram for malignant neoplasm of breast (principal)
CPT/HCPCS: 77063; 77067

== ENCOUNTER 2021-08-01 12:03 | Emergency (ER) | payer OTHER, MEDICARE ==
[~2021-08-01] VITALS: Ht 157.5 cm; Wt 70.6 kg
[2021-08-01 12:08] VITALS: BP 146/61
[2021-08-01] MEDS ORDERED: ORPH100T PO ×2 (12:45→13:43)
[2021-08-01] MEDS ORDERED: NAPR-695 PO ×2 (12:45→13:43)
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
== END 2021-08-01 12:57 | disposition home or self-care (01) ==
LOC: ER 12:03
DX: S39.012A Strain of muscle, fascia and tendon of lower back, initial encounter (principal); Z88.0 Allergy status to penicillin; V49.49XA Driver injured in collision with other motor vehicles in traffic accident, initial encounter; Y93.89 Activity, other specified; Y92.488 Other paved roadways as the place of occurrence of the external cause; Y99.8 Other external cause status
CPT/HCPCS: 99283